=== PATIENT | female | born 1950 | race Caucasian/White ===

== ENCOUNTER 2021-03-05 15:35 | Inpatient (IN) ==
[2021-03-05] MEDS ORDERED: D5% in Water 1,000 ML IVC PRN (16:26)
[2021-03-05] MEDS ORDERED: *HR* Dextrose 50 % in Water (Syg) 50 ML SYRINGE IVP PRN (16:26)
[2021-03-05] MEDS ORDERED: Dextrose Gel 15 GM/37.5 ML TUBE PO PRN ×2 (16:26)
[2021-03-06 04:32] LABS: Basophils % 0.2 %; Eosinophils # 0.1 K/mcL (0.0-0.6); Hematocrit 32.7 % (35.3-44.9); Hemoglobin 10.5 g/dL (11.5-15.4); Immature Granulocytes % 0.7 % (0-4); Lymphocytes # 1.5 K/mcL (0.6-4.6); Lymphocytes % 17.9 %; Mean Corpuscular HGB Conc 32.1 g/dL (31.6-35.5); Mean Corpuscular Volume 90.3 fL (83.0-100.0); Mean Platelet Volume 10.7 fL (9.4-12.4); Monocytes # 0.8 K/mcL (0.0-1.3); Monocytes % 9.7 %; Neutrophils # 5.9 K/mcL (1.6-8.9); Nucleated Red Blood Cells 0.2 /100 WBC (0); Platelet Count 166 K/mcL (140-400); Red Blood Count 3.62 M/mcL (3.82-4.97); Red Cell Distribution Width 12.7 % (11.5-14.5); Segmented Neutrophils % 70.5 %; White Blood Count 8.4 K/mcL (4.3-11.1)
[2021-03-06 04:47] LABS: BUN/Creatinine Ratio 18 (6-26); Blood Urea Nitrogen 19 mg/dL (8-23); Calcium 10.3 mg/dL (8.6-10.3); Carbon Dioxide 22 mEq/L (23-29); Chloride 101 mEq/L (98-107); Glucose 313 mg/dL (70-105); Osmolality,Calculated 288 (280-300); Potassium 4.8 mEq/L (3.5-5.1); Sodium 132 mEq/L (136-145); eGFR For African Americans > 60 (> 60); eGFR For Non-African Americans 52 (> 60)
[2021-03-06] MEDS: *HR* Enoxaparin 40 MG/0.4 ML SYRINGE SQ SCH (05:54)
[2021-03-06] MEDS: *HR* Metformin 500 MG TABLET PO SCH ×2 (07:40→17:29)
[2021-03-06] MEDS: Insulin LISPRO 300 UNITS/3 ML VIAL SUBQ SCH ×3 (07:41→17:29)
[2021-03-06] MEDS: *HR* Nateglinide 120 MG TABLET PO SCH ×3 (07:41→17:29)
[2021-03-06] MEDS: Insulin DETEMIR 100 UNIT/ML X5UNITS SUBQ SCH ×2 (07:42→20:10)
[2021-03-07] MEDS: *HR* Enoxaparin 40 MG/0.4 ML SYRINGE SQ SCH (05:36)
[2021-03-07 06:28] LABS: Basophils % 0.3 %; Eosinophils # 0.1 K/mcL (0.0-0.6); Eosinophils % 1.4 %; Hematocrit 37.2 % (35.3-44.9); Hemoglobin 12.1 g/dL (11.5-15.4); Immature Granulocytes % 0.6 % (0-4); Lymphocytes # 1.8 K/mcL (0.6-4.6); Lymphocytes % 19.2 %; Mean Corpuscular HGB Conc 32.5 g/dL (31.6-35.5); Mean Corpuscular Hemoglobin 29.5 pg (28.0-33.3); Mean Corpuscular Volume 90.7 fL (83.0-100.0); Mean Platelet Volume 10.4 fL (9.4-12.4); Monocytes # 1.1 K/mcL (0.0-1.3); Monocytes % 11.6 %; Neutrophils # 6.4 K/mcL (1.6-8.9); Platelet Count 182 K/mcL (140-400); Red Cell Distribution Width 13.2 % (11.5-14.5); Segmented Neutrophils % 66.9 %; White Blood Count 9.6 K/mcL (4.3-11.1)
[2021-03-07 06:44] LABS: Calcium 10.7 mg/dL (8.6-10.3); Potassium 4.2 mEq/L (3.5-5.1)
[2021-03-07] MEDS: *HR* Nateglinide 120 MG TABLET PO SCH ×3 (07:54→18:09)
[2021-03-07] MEDS: Insulin LISPRO 300 UNITS/3 ML VIAL SUBQ SCH ×3 (07:54→17:47)
[2021-03-07] MEDS: *HR* Metformin 500 MG TABLET PO SCH ×2 (07:54→18:09)
[2021-03-07] MEDS: Insulin DETEMIR 100 UNIT/ML X5UNITS SUBQ SCH ×2 (07:55→22:10)
[2021-03-07 10:31] LABS: Estimated Average Glucose 280 mg/dl; Hemoglobin A1C 11.4 %
[2021-03-07] MEDS ORDERED: Nystatin POWDER 30 GM BOTTLE TP PRN (21:00)
[2021-03-08] MEDS: Levothyroxine 25 MCG TABLET PO SCH (05:43)
[2021-03-08] MEDS: *HR* Enoxaparin 40 MG/0.4 ML SYRINGE SQ SCH (05:43)
[2021-03-08] MEDS: Insulin LISPRO 300 UNITS/3 ML VIAL SUBQ SCH ×3 (08:08→16:21)
[2021-03-08] MEDS: *HR* Nateglinide 120 MG TABLET PO SCH ×3 (08:09→16:21)
[2021-03-08] MEDS: *HR* Metformin 500 MG TABLET PO SCH ×2 (08:09→16:21)
[2021-03-08] MEDS: Cholecalciferol (D-3) 1,000 UNIT (25MCG) TABLET PO SCH (08:09)
[2021-03-08] MEDS: Insulin DETEMIR 100 UNIT/ML X5UNITS SUBQ SCH ×2 (08:12→21:57)
[2021-03-09] MEDS: *HR* Enoxaparin 40 MG/0.4 ML SYRINGE SQ SCH (05:46)
[2021-03-09] MEDS: Levothyroxine 25 MCG TABLET PO SCH (05:46)
[2021-03-09] MEDS: *HR* Metformin 500 MG TABLET PO SCH ×3 (08:23→16:04)
[2021-03-09] MEDS: Cholecalciferol (D-3) 1,000 UNIT (25MCG) TABLET PO SCH (08:23)
[2021-03-09] MEDS: *HR* Nateglinide 120 MG TABLET PO SCH ×4 (08:23→16:04)
[2021-03-09] MEDS: Insulin DETEMIR 100 UNIT/ML X5UNITS SUBQ SCH ×2 (08:23→21:10)
[2021-03-09] MEDS: Insulin LISPRO 300 UNITS/3 ML VIAL SUBQ SCH ×3 (08:26→16:01)
[2021-03-10] MEDS: Levothyroxine 25 MCG TABLET PO SCH (05:32)
[2021-03-10] MEDS: *HR* Enoxaparin 40 MG/0.4 ML SYRINGE SQ SCH (05:33)
[2021-03-10] MEDS: Cholecalciferol (D-3) 1,000 UNIT (25MCG) TABLET PO SCH (08:32)
[2021-03-10] MEDS: *HR* Nateglinide 120 MG TABLET PO SCH ×3 (08:32→16:58)
[2021-03-10] MEDS: *HR* Metformin 500 MG TABLET PO SCH ×2 (08:33→16:58)
[2021-03-10] MEDS: Insulin DETEMIR 100 UNIT/ML X5UNITS SUBQ SCH ×2 (08:33→21:54)
[2021-03-10] MEDS: Insulin LISPRO 300 UNITS/3 ML VIAL SUBQ SCH ×3 (08:34→16:31)
[2021-03-10] MEDS: Acetaminophen 325 MG TABLET PO PRN (22:31)
[2021-03-11] MEDS: *HR* Enoxaparin 40 MG/0.4 ML SYRINGE SQ SCH (05:27)
[2021-03-11] MEDS: Levothyroxine 25 MCG TABLET PO SCH (05:27)
[2021-03-11 07:31] LABS: Hematocrit 41.2 % (35.3-44.9); Hemoglobin 13.1 g/dL (11.5-15.4); Mean Corpuscular HGB Conc 31.8 g/dL (31.6-35.5); Mean Corpuscular Hemoglobin 29.1 pg (28.0-33.3); Mean Corpuscular Volume 91.6 fL (83.0-100.0); Mean Platelet Volume 10.7 fL (9.4-12.4); Platelet Count 140 K/mcL (140-400); Red Cell Distribution Width 13.8 % (11.5-14.5); White Blood Count 14.7 K/mcL (4.3-11.1)
[2021-03-11] MEDS: *HR* Nateglinide 120 MG TABLET PO SCH ×3 (09:08→16:02)
[2021-03-11] MEDS: Cholecalciferol (D-3) 1,000 UNIT (25MCG) TABLET PO SCH (09:08)
[2021-03-11] MEDS: Insulin LISPRO 300 UNITS/3 ML VIAL SUBQ SCH ×3 (09:09→16:02)
[2021-03-11] MEDS: *HR* Metformin 500 MG TABLET PO SCH (09:09)
[2021-03-11] MEDS: Acetaminophen 325 MG TABLET PO PRN ×2 (09:09→16:01)
[2021-03-11] MEDS: Insulin DETEMIR 100 UNIT/ML X5UNITS SUBQ SCH ×2 (09:09→19:53)
[2021-03-11] MEDS ORDERED: Ondansetron 4 MG/2 ML VIAL IVP PRN (09:16)
[2021-03-11] MEDS ORDERED: Ondansetron ODT 4 MG TAB.RAPDIS SL PRN (09:16)
[2021-03-11 11:49] LABS: Albumin 2.8 g/dL (3.5-5.7); Albumin/Globulin Ratio 0.8 (1.1-2.2); Bilirubin,Total 0.6 mg/dL (0.3-1.0); Calcium 10.1 mg/dL (8.6-10.3); Globulin 3.7 g/dL (2.4-3.5); Magnesium 0.6 mg/dL (1.6-2.6); Potassium 4.9 mEq/L (3.5-5.1); Total Protein 6.5 g/dL (6.4-8.9)
[2021-03-11] MEDS ORDERED: 0.9 % Sodium Chloride 500 ML IVC ONE (13:05)
[2021-03-11 13:40] LABS: Estimated Average Glucose 269 mg/dl
[2021-03-11] MEDS: 0.9 % Sodium Chloride 1,000 ML IVC SCH (14:32)
[2021-03-11] MEDS ORDERED: *HR* Enoxaparin 100 MG/ML SYRINGE SQ SCH (15:30)
[2021-03-11] MEDS ORDERED: *HR* Heparin 5,000 UNIT/ML VIAL IVP ONE (17:39)
[2021-03-11] MEDS ORDERED: *HR* Heparin 5,000 UNIT/ML VIAL IVP PRN ×2 (17:39)
[2021-03-11] MEDS: Heparin 25,000UNIT/250ML 1/2NS 25,000 UNIT/250 ML IV.SOLN IVC SCH (18:09)
[2021-03-11 18:12] LABS: Hematocrit 38.2 % (35.3-44.9); Hemoglobin 12.1 g/dL (11.5-15.4); Mean Corpuscular HGB Conc 31.7 g/dL (31.6-35.5); Mean Corpuscular Hemoglobin 28.9 pg (28.0-33.3); Mean Corpuscular Volume 91.2 fL (83.0-100.0); Mean Platelet Volume 10.9 fL (9.4-12.4); Platelet Count 152 K/mcL (140-400); Red Blood Count 4.19 M/mcL (3.82-4.97); Red Cell Distribution Width 13.8 % (11.5-14.5); White Blood Count 14.3 K/mcL (4.3-11.1)
[2021-03-11 18:35] LABS: Heparin anti-factor XA UFH 0.09 IU/mL (0.30-0.70); INR 1.1; Prothrombin Time 11.8 Seconds (9.4-12.1)
[2021-03-11] MEDS ORDERED: *HR* HYDROcodone/Acet 5/325 mg TABLET PO PRN (20:27)
[2021-03-12] MEDS: *HR* HYDROcodone/Acet 5/325 mg TABLET PO PRN ×2 (03:47→09:02)
[2021-03-12] MEDS: 0.9 % Sodium Chloride 1,000 ML IVC SCH ×4 (03:48→11:57)
[2021-03-12] MEDS: Levothyroxine 25 MCG TABLET PO SCH (05:52)
[2021-03-12 07:50] LABS: Hematocrit 37.4 % (35.3-44.9); Hemoglobin 11.9 g/dL (11.5-15.4); Mean Corpuscular HGB Conc 31.8 g/dL (31.6-35.5); Mean Corpuscular Hemoglobin 29.3 pg (28.0-33.3); Mean Corpuscular Volume 92.1 fL (83.0-100.0); Mean Platelet Volume 11.2 fL (9.4-12.4); Platelet Count 173 K/mcL (140-400); Red Blood Count 4.06 M/mcL (3.82-4.97); Red Cell Distribution Width 13.9 % (11.5-14.5); White Blood Count 14.5 K/mcL (4.3-11.1)
[2021-03-12 08:05] LABS: Calcium 9.4 mg/dL (8.6-10.3); Magnesium 2.4 mg/dL (1.6-2.6); Potassium 5.3 mEq/L (3.5-5.1)
[2021-03-12] MEDS: Insulin LISPRO 300 UNITS/3 ML VIAL SUBQ SCH ×3 (08:37→16:54)
[2021-03-12] MEDS: Insulin DETEMIR 100 UNIT/ML X5UNITS SUBQ SCH (08:38)
[2021-03-12] MEDS: Cholecalciferol (D-3) 1,000 UNIT (25MCG) TABLET PO SCH (09:02)
[2021-03-12] MEDS: *HR* Nateglinide 120 MG TABLET PO SCH ×3 (09:02→16:56)
[2021-03-12 12:31] LABS: Calcium 9.1 mg/dL (8.6-10.3); Potassium 4.9 mEq/L (3.5-5.1)
[2021-03-12 15:54] VITALS: RESP 16
[2021-03-12 16:45] VITALS: BP 109/73; PULSE 96; TEMP 97.7; O2SAT 95
[2021-03-12] MEDS: Heparin 25,000UNIT/250ML 1/2NS 25,000 UNIT/250 ML IV.SOLN IVC SCH (17:37)
== END 2021-03-12 18:00 | disposition short-term general hospital (02) | DRG 945 ==
LOC: INPGRE 20:40
PROVIDERS: ADMIT Family Medicine; ATTEND Family Medicine

== ENCOUNTER 2021-03-18 17:23 | Inpatient (IN) ==
[2021-03-18] MEDS ORDERED: Dextrose Gel 15 GM/37.5 ML TUBE PO PRN ×2 (19:42)
[2021-03-18] MEDS ORDERED: *HR* Dextrose 50 % in Water (Syg) 50 ML SYRINGE IVP PRN (19:42)
[2021-03-18] MEDS ORDERED: D5% in Water 1,000 ML IVC PRN (19:42)
[2021-03-18] MEDS: Lactobacillus 1 EACH CAP.SPRINK PO SCH (21:15)
[2021-03-18] MEDS ORDERED: Insulin DETEMIR 100 UNIT/ML per UNIT SUBQ ONE (21:15)
[2021-03-18] MEDS ORDERED: *HR* Warfarin 2 MG TABLET PO ONE (21:15)
[2021-03-18] MEDS: *HR* Metformin 500 MG TABLET PO SCH (21:16)
[2021-03-18] MEDS: *HR* Nateglinide 120 MG TABLET PO SCH (21:17)
[2021-03-18] MEDS: Sennosides/Docusate Sodium TABLET PO SCH (21:23)
[2021-03-19 04:48] LABS: Basophils % 0.3 %; Eosinophils # 0.1 K/mcL (0.0-0.6); Eosinophils % 2.2 %; Hematocrit 27.3 % (35.3-44.9); Hemoglobin 8.6 g/dL (11.5-15.4); Immature Granulocytes % 0.5 % (0-4); Lymphocytes # 1.1 K/mcL (0.6-4.6); Lymphocytes % 17.9 %; Mean Corpuscular HGB Conc 31.5 g/dL (31.6-35.5); Mean Corpuscular Volume 91.9 fL (83.0-100.0); Mean Platelet Volume 10.2 fL (9.4-12.4); Monocytes # 0.7 K/mcL (0.0-1.3); Neutrophils # 4.3 K/mcL (1.6-8.9); Nucleated Red Blood Cells 0.3 /100 WBC (0); Platelet Count 158 K/mcL (140-400); Red Blood Count 2.97 M/mcL (3.82-4.97); Red Cell Distribution Width 14.6 % (11.5-14.5); Segmented Neutrophils % 68.1 %; White Blood Count 6.3 K/mcL (4.3-11.1)
[2021-03-19 04:51] LABS: INR 2.7
[2021-03-19 04:56] LABS: Platelet Estimate Normal (Normal)
[2021-03-19 05:02] LABS: BUN/Creatinine Ratio 12 (6-26); Blood Urea Nitrogen 12 mg/dL (8-23); Calcium 8.4 mg/dL (8.6-10.3); Carbon Dioxide 23 mEq/L (23-29); Chloride 102 mEq/L (98-107); Glucose 98 mg/dL (70-105); Osmolality,Calculated 278 (280-300); Sodium 134 mEq/L (136-145); eGFR For African Americans > 60 (> 60); eGFR For Non-African Americans 56 (> 60)
[2021-03-19] MEDS: Insulin LISPRO 300 UNITS/3 ML VIAL SUBQ SCH ×3 (07:47→17:38)
[2021-03-19] MEDS: *HR* Metformin 500 MG TABLET PO SCH ×2 (08:47→17:36)
[2021-03-19] MEDS: Sennosides/Docusate Sodium TABLET PO SCH ×2 (08:48→20:27)
[2021-03-19] MEDS: Lactobacillus 1 EACH CAP.SPRINK PO SCH ×2 (08:48→20:24)
[2021-03-19] MEDS: Renal Vitamin 1 CAP CAPSULE PO SCH (08:48)
[2021-03-19] MEDS: *HR* Nateglinide 120 MG TABLET PO SCH ×3 (08:48→20:25)
[2021-03-19] MEDS: Insulin DETEMIR 100 UNIT/ML X5UNITS SUBQ SCH ×2 (08:51→20:27)
[2021-03-19] MEDS: *HR* HYDROcodone/Acet 5/325 mg TABLET PO PRN ×2 (10:27→22:43)
[2021-03-19] MEDS ORDERED: *HR* Warfarin 2 MG TABLET PO ONE (18:00)
[2021-03-19] MEDS ORDERED: Warfarin perPT PO PRN (18:00)
[2021-03-20] MEDS: *HR* HYDROcodone/Acet 5/325 mg TABLET PO PRN ×3 (04:56→21:05)
[2021-03-20] MEDS: *HR* Nateglinide 120 MG TABLET PO SCH ×3 (08:32→21:06)
[2021-03-20] MEDS: Insulin DETEMIR 100 UNIT/ML X5UNITS SUBQ SCH ×2 (08:32→21:07)
[2021-03-20] MEDS: Renal Vitamin 1 CAP CAPSULE PO SCH (08:32)
[2021-03-20] MEDS: Lactobacillus 1 EACH CAP.SPRINK PO SCH ×2 (08:32→21:06)
[2021-03-20] MEDS: *HR* Metformin 500 MG TABLET PO SCH ×2 (08:32→17:14)
[2021-03-20] MEDS: Sennosides/Docusate Sodium TABLET PO SCH ×2 (08:33→21:06)
[2021-03-20] MEDS: Insulin LISPRO 300 UNITS/3 ML VIAL SUBQ SCH ×3 (08:33→17:14)
[2021-03-20 09:00] LABS: INR 2.9
[2021-03-20] MEDS ORDERED: *HR* Warfarin 1 MG TABLET PO ONE (18:00)
[2021-03-21] MEDS: *HR* HYDROcodone/Acet 5/325 mg TABLET PO PRN ×3 (05:28→22:32)
[2021-03-21 07:29] LABS: Prothrombin Time 32.8 Seconds (9.4-12.1)
[2021-03-21] MEDS: Insulin DETEMIR 100 UNIT/ML X5UNITS SUBQ SCH ×2 (08:48→19:57)
[2021-03-21] MEDS: *HR* Nateglinide 120 MG TABLET PO SCH ×3 (08:48→19:57)
[2021-03-21] MEDS: Renal Vitamin 1 CAP CAPSULE PO SCH (08:48)
[2021-03-21] MEDS: *HR* Metformin 500 MG TABLET PO SCH ×2 (08:48→17:31)
[2021-03-21] MEDS: Sennosides/Docusate Sodium TABLET PO SCH ×2 (08:48→19:57)
[2021-03-21] MEDS: Insulin LISPRO 300 UNITS/3 ML VIAL SUBQ SCH ×3 (08:48→17:30)
[2021-03-21] MEDS: Lactobacillus 1 EACH CAP.SPRINK PO SCH ×2 (08:48→19:57)
[2021-03-21] MEDS ORDERED: *HR* Warfarin 1 MG TABLET PO ONE (18:00)
[2021-03-22 06:05] LABS: INR 2.8; Prothrombin Time 30.8 Seconds (9.4-12.1)
[2021-03-22] MEDS: *HR* Metformin 500 MG TABLET PO SCH ×2 (09:13→15:10)
[2021-03-22] MEDS: Lactobacillus 1 EACH CAP.SPRINK PO SCH ×2 (09:13→21:53)
[2021-03-22] MEDS: *HR* HYDROcodone/Acet 5/325 mg TABLET PO PRN ×3 (09:13→21:53)
[2021-03-22] MEDS: Renal Vitamin 1 CAP CAPSULE PO SCH (09:13)
[2021-03-22] MEDS: Insulin LISPRO 300 UNITS/3 ML VIAL SUBQ SCH ×3 (09:13→17:38)
[2021-03-22] MEDS: *HR* Nateglinide 120 MG TABLET PO SCH ×3 (09:14→21:53)
[2021-03-22] MEDS: Sennosides/Docusate Sodium TABLET PO SCH ×2 (09:15→21:53)
[2021-03-22] MEDS: Insulin DETEMIR 100 UNIT/ML X5UNITS SUBQ SCH ×2 (09:19→21:52)
[2021-03-22 12:48] LABS: Basophils % 0.2 %; Eosinophils # 0.1 K/mcL (0.0-0.6); Eosinophils % 1.2 %; Hematocrit 30.2 % (35.3-44.9); Hemoglobin 9.5 g/dL (11.5-15.4); Immature Granulocytes % 0.6 % (0-4); Lymphocytes # 1.1 K/mcL (0.6-4.6); Lymphocytes % 12.1 %; Mean Corpuscular HGB Conc 31.5 g/dL (31.6-35.5); Mean Corpuscular Hemoglobin 28.8 pg (28.0-33.3); Mean Corpuscular Volume 91.5 fL (83.0-100.0); Mean Platelet Volume 10.1 fL (9.4-12.4); Monocytes # 0.8 K/mcL (0.0-1.3); Monocytes % 8.8 %; Neutrophils # 7.3 K/mcL (1.6-8.9); Platelet Count 228 K/mcL (140-400); Segmented Neutrophils % 77.1 %; White Blood Count 9.4 K/mcL (4.3-11.1)
[2021-03-22 12:58] LABS: Calcium 8.5 mg/dL (8.6-10.3); Potassium 4.3 mEq/L (3.5-5.1)
[2021-03-22] MEDS ORDERED: *HR* Warfarin 2 MG TABLET PO ONE (18:00)
[2021-03-22] MEDS: hydrOXYzine pamoate 25 MG CAPSULE PO PRN (21:53)
[2021-03-23 06:00] LABS: INR 2.9; Prothrombin Time 31.8 Seconds (9.4-12.1)
[2021-03-23] MEDS: *HR* HYDROcodone/Acet 5/325 mg TABLET PO PRN ×2 (06:54→16:39)
[2021-03-23] MEDS: Insulin LISPRO 300 UNITS/3 ML VIAL SUBQ SCH ×3 (08:34→16:09)
[2021-03-23] MEDS: Sennosides/Docusate Sodium TABLET PO SCH ×2 (09:20→21:53)
[2021-03-23] MEDS: Insulin DETEMIR 100 UNIT/ML X5UNITS SUBQ SCH (09:21)
[2021-03-23] MEDS: Renal Vitamin 1 CAP CAPSULE PO SCH (09:21)
[2021-03-23] MEDS: *HR* Nateglinide 120 MG TABLET PO SCH ×3 (09:21→21:53)
[2021-03-23] MEDS: *HR* Metformin 500 MG TABLET PO SCH ×2 (09:21→16:09)
[2021-03-23] MEDS: Lactobacillus 1 EACH CAP.SPRINK PO SCH ×2 (09:21→21:53)
[2021-03-23] MEDS ORDERED: *HR* Warfarin 2 MG TABLET PO ONE (18:00)
[2021-03-23] MEDS: hydrOXYzine pamoate 25 MG CAPSULE PO PRN (21:53)
[2021-03-24] MEDS: *HR* HYDROcodone/Acet 5/325 mg TABLET PO PRN ×3 (06:02→22:32)
[2021-03-24 06:13] LABS: INR 3.5; Prothrombin Time 38.2 Seconds (9.4-12.1)
[2021-03-24] MEDS: Insulin LISPRO 300 UNITS/3 ML VIAL SUBQ SCH ×3 (08:03→16:44)
[2021-03-24] MEDS: Lactobacillus 1 EACH CAP.SPRINK PO SCH ×2 (08:46→21:06)
[2021-03-24] MEDS: *HR* Metformin 500 MG TABLET PO SCH ×2 (08:46→15:30)
[2021-03-24] MEDS: Renal Vitamin 1 CAP CAPSULE PO SCH (08:47)
[2021-03-24] MEDS: *HR* Nateglinide 120 MG TABLET PO SCH ×3 (08:47→21:06)
[2021-03-24] MEDS: Sennosides/Docusate Sodium TABLET PO SCH ×2 (08:48→21:06)
[2021-03-25] MEDS: *HR* HYDROcodone/Acet 5/325 mg TABLET PO PRN ×2 (05:14→14:43)
[2021-03-25 05:22] LABS: Basophils % 0.3 %; Eosinophils # 0.3 K/mcL (0.0-0.6); Eosinophils % 3.3 %; Hematocrit 28.1 % (35.3-44.9); Hemoglobin 8.8 g/dL (11.5-15.4); Immature Granulocytes % 0.8 % (0-4); Lymphocytes # 1.3 K/mcL (0.6-4.6); Lymphocytes % 17.5 %; Mean Corpuscular HGB Conc 31.3 g/dL (31.6-35.5); Mean Corpuscular Hemoglobin 28.8 pg (28.0-33.3); Mean Corpuscular Volume 91.8 fL (83.0-100.0); Monocytes # 0.6 K/mcL (0.0-1.3); Monocytes % 8.1 %; Neutrophils # 5.3 K/mcL (1.6-8.9); Platelet Count 255 K/mcL (140-400); Red Blood Count 3.06 M/mcL (3.82-4.97); Red Cell Distribution Width 15.2 % (11.5-14.5); White Blood Count 7.5 K/mcL (4.3-11.1)
[2021-03-25 05:25] LABS: INR 3.2; Prothrombin Time 35.4 Seconds (9.4-12.1)
[2021-03-25 05:28] LABS: Platelet Estimate Normal (Normal)
[2021-03-25 05:35] LABS: BUN/Creatinine Ratio 15 (6-26); Blood Urea Nitrogen 15 mg/dL (8-23); Calcium 7.8 mg/dL (8.6-10.3); Carbon Dioxide 28 mEq/L (23-29); Chloride 99 mEq/L (98-107); Glucose 128 mg/dL (70-105); Osmolality,Calculated 278 (280-300); Potassium 4.6 mEq/L (3.5-5.1); Sodium 133 mEq/L (136-145); eGFR For African Americans > 60 (> 60); eGFR For Non-African Americans 54 (> 60)
[2021-03-25] MEDS: Insulin LISPRO 300 UNITS/3 ML VIAL SUBQ SCH ×3 (08:44→17:46)
[2021-03-25] MEDS: Renal Vitamin 1 CAP CAPSULE PO SCH (08:45)
[2021-03-25] MEDS: Sennosides/Docusate Sodium TABLET PO SCH ×2 (08:45→20:28)
[2021-03-25] MEDS: *HR* Metformin 500 MG TABLET PO SCH ×2 (08:46→17:33)
[2021-03-25] MEDS: *HR* Nateglinide 120 MG TABLET PO SCH ×3 (08:46→20:27)
[2021-03-25] MEDS: Lactobacillus 1 EACH CAP.SPRINK PO SCH ×2 (08:46→20:27)
[2021-03-25] MEDS: hydrOXYzine pamoate 25 MG CAPSULE PO PRN ×2 (08:47→14:43)
[2021-03-25] MEDS ORDERED: *HR* Warfarin 1 MG TABLET PO ONE (18:00)
[2021-03-25 18:01] LABS: Bilirubin,Urine Small (Negative); Blood,Urine Negative (Negative); Clarity,Urine Clear (Clear); Color,Urine Yellow (Yellow); Glucose,Urine (UA) Normal (Normal); Ketones,Urine Trace mg/dL (Negative); Leukocyte Esterase,Urine Negative (Negative); Nitrite,Urine Negative (Negative); PH,Urine 5.5 pH Units (5.0-8.0); Protein,Urine 30 mg/dL (Neg-Trace); Specific Gravity,Urine 1.025 (1.010-1.025); Urobilinogen,Urine Normal (Normal)
[2021-03-25 18:13] LABS: Amorphous Sediment,Urine Few per hpf (None-Few); Squamous Epithelial Cell,Urine Few per hpf (None-Few)
[2021-03-25] MEDS: Nystatin POWDER 30 GM BOTTLE TP SCH (20:33)
[2021-03-26] MEDS: *HR* HYDROcodone/Acet 5/325 mg TABLET PO PRN ×3 (00:48→22:20)
[2021-03-26 04:53] LABS: INR 2.9; Prothrombin Time 31.8 Seconds (9.4-12.1)
[2021-03-26] MEDS: Insulin LISPRO 300 UNITS/3 ML VIAL SUBQ SCH ×3 (07:29→17:08)
[2021-03-26] MEDS: Sennosides/Docusate Sodium TABLET PO SCH ×2 (07:59→22:21)
[2021-03-26] MEDS: *HR* Nateglinide 120 MG TABLET PO SCH ×3 (07:59→17:08)
[2021-03-26] MEDS: Lactobacillus 1 EACH CAP.SPRINK PO SCH ×2 (07:59→22:21)
[2021-03-26] MEDS: Renal Vitamin 1 CAP CAPSULE PO SCH (07:59)
[2021-03-26] MEDS: *HR* Metformin 500 MG TABLET PO SCH ×2 (08:00→17:08)
[2021-03-26] MEDS: Nystatin POWDER 30 GM BOTTLE TP SCH ×2 (08:00→22:21)
[2021-03-26] MEDS ORDERED: Ibuprofen 600 MG TABLET PO ONE (13:29)
[2021-03-26] MEDS ORDERED: Ondansetron ODT 4 MG TAB.RAPDIS SL ONE (13:30)
[2021-03-26] MEDS ORDERED: *HR* Warfarin 1 MG TABLET PO ONE (18:00)
[2021-03-26] MEDS: hydrOXYzine pamoate 25 MG CAPSULE PO PRN (22:21)
[2021-03-27 08:10] LABS: Basophils % 0.2 %; Eosinophils # 0.2 K/mcL (0.0-0.6); Eosinophils % 2.2 %; Hematocrit 26.7 % (35.3-44.9); Hemoglobin 8.5 g/dL (11.5-15.4); Immature Granulocytes % 0.5 % (0-4); Lymphocytes # 1.1 K/mcL (0.6-4.6); Lymphocytes % 12.7 %; Mean Corpuscular HGB Conc 31.8 g/dL (31.6-35.5); Mean Corpuscular Hemoglobin 29.2 pg (28.0-33.3); Mean Corpuscular Volume 91.8 fL (83.0-100.0); Mean Platelet Volume 9.7 fL (9.4-12.4); Monocytes # 0.5 K/mcL (0.0-1.3); Monocytes % 6.1 %; Neutrophils # 6.8 K/mcL (1.6-8.9); Platelet Count 339 K/mcL (140-400); Red Blood Count 2.91 M/mcL (3.82-4.97); Red Cell Distribution Width 15.3 % (11.5-14.5); Segmented Neutrophils % 78.3 %; White Blood Count 8.7 K/mcL (4.3-11.1)
[2021-03-27 08:23] LABS: Calcium 7.7 mg/dL (8.6-10.3); Potassium 4.5 mEq/L (3.5-5.1)
[2021-03-27] MEDS: *HR* HYDROcodone/Acet 5/325 mg TABLET PO PRN ×3 (08:53→16:20)
[2021-03-27] MEDS: Lactobacillus 1 EACH CAP.SPRINK PO SCH ×2 (08:54→20:31)
[2021-03-27] MEDS: *HR* Nateglinide 120 MG TABLET PO SCH ×3 (08:54→16:19)
[2021-03-27] MEDS: *HR* Metformin 500 MG TABLET PO SCH ×2 (08:54→16:20)
[2021-03-27] MEDS: Renal Vitamin 1 CAP CAPSULE PO SCH (08:54)
[2021-03-27] MEDS: Insulin LISPRO 300 UNITS/3 ML VIAL SUBQ SCH ×3 (08:55→16:21)
[2021-03-27] MEDS: Nystatin POWDER 30 GM BOTTLE TP SCH ×2 (08:58→20:31)
[2021-03-27] MEDS: Sennosides/Docusate Sodium TABLET PO SCH ×2 (08:58→20:32)
[2021-03-27] MEDS ORDERED: Ibuprofen 400 MG TABLET PO ONE (10:20)
[2021-03-27 10:32] LABS: INR 2.7
[2021-03-27] MEDS ORDERED: *HR* Warfarin 1 MG TABLET PO ONE (18:00)
[2021-03-28] MEDS: *HR* HYDROcodone/Acet 5/325 mg TABLET PO PRN ×3 (01:52→17:04)
[2021-03-28 06:21] LABS: INR 2.5; Prothrombin Time 27.6 Seconds (9.4-12.1)
[2021-03-28] MEDS: Renal Vitamin 1 CAP CAPSULE PO SCH (08:14)
[2021-03-28] MEDS: *HR* Nateglinide 120 MG TABLET PO SCH ×3 (08:14→17:08)
[2021-03-28] MEDS: *HR* Metformin 500 MG TABLET PO SCH ×2 (08:15→17:08)
[2021-03-28] MEDS: Lactobacillus 1 EACH CAP.SPRINK PO SCH ×2 (08:15→20:51)
[2021-03-28] MEDS: Insulin LISPRO 300 UNITS/3 ML VIAL SUBQ SCH ×3 (08:18→17:06)
[2021-03-28] MEDS: Nystatin POWDER 30 GM BOTTLE TP SCH ×2 (09:30→20:53)
[2021-03-28] MEDS: Sennosides/Docusate Sodium TABLET PO SCH ×2 (09:30→20:51)
[2021-03-28] MEDS ORDERED: 0.9 % Sodium Chloride 1,000 ML IVC SCH (17:15)
[2021-03-28] MEDS ORDERED: *HR* Warfarin 2 MG TABLET PO ONE (18:00)
[2021-03-28 18:14] LABS: Hematocrit 29.9 % (35.3-44.9); Hemoglobin 9.5 g/dL (11.5-15.4); Mean Corpuscular HGB Conc 31.8 g/dL (31.6-35.5); Mean Corpuscular Hemoglobin 28.7 pg (28.0-33.3); Mean Corpuscular Volume 90.3 fL (83.0-100.0); Mean Platelet Volume 9.6 fL (9.4-12.4); Platelet Count 411 K/mcL (140-400); Red Blood Count 3.31 M/mcL (3.82-4.97); Red Cell Distribution Width 15.3 % (11.5-14.5); White Blood Count 13.3 K/mcL (4.3-11.1)
[2021-03-28 18:35] LABS: Albumin 2.3 g/dL (3.5-5.7); Albumin/Globulin Ratio 0.8 (1.1-2.2); Bilirubin,Total 0.5 mg/dL (0.3-1.0); Calcium 8.4 mg/dL (8.6-10.3); Globulin 2.8 g/dL (2.4-3.5); Potassium 4.4 mEq/L (3.5-5.1); Total Protein 5.1 g/dL (6.4-8.9)
[2021-03-29 07:30] VITALS: BP 159/82; PULSE 69; RESP 18; TEMP 97.4; O2SAT 94
== END 2021-03-28 23:39 | disposition short-term general hospital (02) | DRG 92 ==
LOC: INPGRE 18:53
PROVIDERS: ADMIT Family Medicine; ATTEND Family Medicine